=== PATIENT | female | born 1945 | race Caucasian/White ===

== ENCOUNTER → 2022-09-03 | Outpatient (CLI) | payer MEDICARE ==
[2022-09-03 19:32] LABS: BASOPHILS ABSOLUTE AUTO 0.05 K/mm3 (0.00-0.23); BASOPHILS PERCENT AUTO 1 % (0-2); EOSINOPHILS PERCENT AUTO 5 % (0-6); Hematocrit 36.6 % (33.0-51.0); Hemoglobin 11.1 g/dL (11.5-16.0); IMMATURE GRAN ABSOLUTE AUTO 0.01 K/mm3 (0.00-0.10); IMMATURE GRAN PERCENT AUTO 0 % (0-1); LYMPHOCYTES ABSOLUTE AUTO 0.74 K/mm3 (0.84-5.20); LYMPHOCYTES PERCENT AUTO 12 % (21-46); MONOCYTES ABSOLUTE AUTO 0.63 K/mm3 (0.16-1.47); MONOCYTES PERCENT AUTO 10 % (4-13); Mean Corpuscular HGB 26.4 pg (26.0-34.0); Mean Corpuscular HGB Conc 30.3 g/dL (31.5-36.5); Mean Corpuscular Volume 87 fL (80-100); Mean Platelet Volume 10.5 fL (9.1-12.4); NEUTROPHILS PERCENT AUTO 73 % (41-73); Platelet Count 221 K/mm3 (150-400); RDW Standard Deviation 51.3 fL (35.1-46.3); Red Blood Cell Count 4.21 M/mm3 (3.80-5.20); White Blood Cell Count 6.33 K/mm3 (4.00-11.30)
[2022-09-03 19:43] LABS: Alanine Aminotransfer (ALT/SGP 23 U/L (12-78); Albumin, Blood 2.9 g/dL (3.4-5.0); Albumin/Globulin Ratio 0.8 (0.8-1.8); Alk Phos 86 U/L (50-136); Anion Gap 5 mmol/L (6-16); Aspartate Aminotrans (AST/SGOT 13 U/L (12-37); Bilirubin, Total 0.4 mg/dL (0.1-1.0); Blood Urea Nitrogen 29 mg/dL (8-24); Bun/Creatinine Ratio 25.7 (12.0-20.0); CHOL/HDL RATIO 2.8; CO2, Blood 29 mmol/L (21-32); Calcium, Blood 8.6 mg/dL (8.5-10.1); Chloride, Blood 108 mmol/L (98-108); Cholesterol 125 mg/dL (50-200); Creatinine, Blood 1.13 mg/dL (0.40-1.00); Globulin, Blood 3.7 g/dL (2.2-4.0); Glomerular Filtration Rate 50 (60-); Glucose, Blood 104 mg/dL (70-99); HDL Cholesterol 44 mg/dL (>39); LDL/HDL RATIO 1.4; Low Density Lipoprotein Chol 61 mg/dL (0-110); Potassium, Blood 4.9 mmol/L (3.5-5.5); Sodium, Blood 142 mmol/L (136-145); Total Protein, Blood 6.6 g/dL (6.4-8.2); Triglycerides 100 mg/dL (30-160); Very Low Density Lipoprot Chol 20 mg/dL (6-32)
== END | disposition home or self-care (01) ==
LOC: LAB 19:07 → LAB SHORT 19:07
PROVIDERS: Family Medicine
DX: Z00.01 Encounter for general adult medical examination with abnormal findings (principal); Z11.59 Encounter for screening for other viral diseases; Z13.6 Encounter for screening for cardiovascular disorders
CPT/HCPCS: 80053; 80061; 85025; 86803

== ENCOUNTER → 2022-11-14 | Outpatient (CLI) | payer MEDICARE ==
[2022-11-14 15:24] LABS: IMMATURE RETIC FRACTION 13.6 % (2.3-16.0); RETIC HGB EQUIVALENT 29.1 pg (28.20-36.60); RETICULOCYTE ABSOLUTE 0.0591 M/mm3 (0.0200-0.1100); RETICULOCYTE COUNT PERCENT 1.42 % (0.50-2.50)
[2022-11-14 16:21] LABS: Bun/Creatinine Ratio 30.2 (12.0-20.0); Calcium, Blood 8.8 mg/dL (8.5-10.1); Creatinine, Blood 0.99 mg/dL (0.40-1.00); Percent Saturation 16.7 % (15.0-50.0); Potassium, Blood 4.5 mmol/L (3.5-5.5)
== END ==
LOC: LAB SHORT 13:52 → LAB 13:52
PROVIDERS: Family Medicine
DX: R94.4 Abnormal results of kidney function studies (principal); D50.8 Other iron deficiency anemias; D64.9 Anemia, unspecified
CPT/HCPCS: 36415; 80048; 82728; 83540; 83550; 85045

== ENCOUNTER → 2023-02-14 | Outpatient (CLI) | payer MEDICARE ==
[2023-02-14 14:37] LABS: BASOPHILS ABSOLUTE AUTO 0.05 K/mm3 (0.00-0.23); BASOPHILS PERCENT AUTO 1 % (0-2); EOSINOPHILS ABSOLUTE AUTO 0.17 K/mm3 (0.00-0.68); EOSINOPHILS PERCENT AUTO 2 % (0-6); Hematocrit 41.4 % (33.0-51.0); Hemoglobin 13.2 g/dL (11.5-16.0); IMMATURE GRAN ABSOLUTE AUTO 0.05 K/mm3 (0.00-0.10); IMMATURE GRAN PERCENT AUTO 1 % (0-1); LYMPHOCYTES ABSOLUTE AUTO 0.86 K/mm3 (0.84-5.20); LYMPHOCYTES PERCENT AUTO 12 % (21-46); MONOCYTES ABSOLUTE AUTO 0.62 K/mm3 (0.16-1.47); MONOCYTES PERCENT AUTO 9 % (4-13); Mean Corpuscular HGB 28.6 pg (26.0-34.0); Mean Corpuscular HGB Conc 31.9 g/dL (31.5-36.5); Mean Corpuscular Volume 90 fL (80-100); Mean Platelet Volume 9.9 fL (9.1-12.4); NEUTROPHILS ABSOLUTE AUTO 5.24 K/mm3 (1.96-9.15); NEUTROPHILS PERCENT AUTO 75 % (41-73); Platelet Count 215 K/mm3 (150-400); RDW Coefficient Variation 14.5 % (11.7-14.2); RDW Standard Deviation 46.7 fL (35.1-46.3); Red Blood Cell Count 4.61 M/mm3 (3.80-5.20); White Blood Cell Count 6.99 K/mm3 (4.00-11.30)
[2023-02-14 15:35] LABS: Alanine Aminotransfer (ALT/SGP 21 U/L (12-78); Albumin, Blood 3.1 g/dL (3.4-5.0); Albumin/Globulin Ratio 0.8 (0.8-1.8); Alk Phos 98 U/L (50-136); Anion Gap 4 mmol/L (6-16); Aspartate Aminotrans (AST/SGOT 15 U/L (12-37); Bilirubin, Total 0.6 mg/dL (0.1-1.0); Blood Urea Nitrogen 18 mg/dL (8-24); Bun/Creatinine Ratio 20.4 (12.0-20.0); CHOL/HDL RATIO 1.9; CO2, Blood 31 mmol/L (21-32); Calcium, Blood 8.8 mg/dL (8.5-10.1); Chloride, Blood 107 mmol/L (98-108); Cholesterol 109 mg/dL (50-200); Creatinine, Blood 0.88 mg/dL (0.40-1.00); Globulin, Blood 3.9 g/dL (2.2-4.0); Glomerular Filtration Rate 67 (60-); Glucose, Blood 117 mg/dL (70-99); HDL Cholesterol 56 mg/dL (>39); LDL/HDL RATIO 0.6; Low Density Lipoprotein Chol 33 mg/dL (0-110); Potassium, Blood 3.7 mmol/L (3.5-5.5); Sodium, Blood 142 mmol/L (136-145); Triglycerides 98 mg/dL (30-160); Very Low Density Lipoprot Chol 19 mg/dL (6-32)
== END | disposition home or self-care (01) ==
LOC: LAB SHORT 13:36 → LAB 13:36
PROVIDERS: Family Medicine
DX: Z51.81 Encounter for therapeutic drug level monitoring (principal); Z79.899 Other long term (current) drug therapy
CPT/HCPCS: 80053; 80061; 84443; 85025

== ENCOUNTER 2023-04-04 14:51 | Inpatient (IN) | payer MEDICARE ==
[~2023-04-04] VITALS: Ht 142.2 cm; Wt 93.3 kg
[2023-04-04 15:15] LABS: BASOPHILS ABSOLUTE AUTO 0.04 K/mm3 (0.00-0.23); BASOPHILS PERCENT AUTO 0 % (0-2); EOSINOPHILS ABSOLUTE AUTO 0.01 K/mm3 (0.00-0.68); EOSINOPHILS PERCENT AUTO 0 % (0-6); Hematocrit 42.2 % (33.0-51.0); Hemoglobin 13.8 g/dL (11.5-16.0); IMMATURE GRAN ABSOLUTE AUTO 0.14 K/mm3 (0.00-0.10); IMMATURE GRAN PERCENT AUTO 1 % (0-1); LYMPHOCYTES ABSOLUTE AUTO 0.33 K/mm3 (0.84-5.20); LYMPHOCYTES PERCENT AUTO 2 % (21-46); MONOCYTES ABSOLUTE AUTO 1.27 K/mm3 (0.16-1.47); MONOCYTES PERCENT AUTO 7 % (4-13); Mean Corpuscular HGB 29.3 pg (26.0-34.0); Mean Corpuscular HGB Conc 32.7 g/dL (31.5-36.5); Mean Corpuscular Volume 90 fL (80-100); Mean Platelet Volume 9.6 fL (9.1-12.4); NEUTROPHILS ABSOLUTE AUTO 17.51 K/mm3 (1.96-9.15); NEUTROPHILS PERCENT AUTO 91 % (41-73); Platelet Count 184 K/mm3 (150-400); RDW Coefficient Variation 13.2 % (11.7-14.2); RDW Standard Deviation 43.1 fL (35.1-46.3); Red Blood Cell Count 4.71 M/mm3 (3.80-5.20)
[2023-04-04 15:22] LABS: Source, Urine Straight Cath
[2023-04-04 15:26] LABS: Blood, Urine 1+ (Neg); Color, Urine Amber (P-Yellow); Glucose Qualitative, Urine 3+ (Neg); Ketones, Urine 1+ (Neg); Leukocyte Esterase, Urine 1+ (Neg); Nitrite, Urine Neg (Neg); Protein, Urine 3+ (Neg); Urobilinogen, Urine 2+ (Normal)
[2023-04-04 15:32] LABS: Appearance, Urine Hazy (Clear); Bilirubin, Urine 1+ (Neg)
[2023-04-04 15:35] LABS: Mucus Light (0-Heavy); Red Blood Cells, Urine 0-2 /hpf (0-2)
[2023-04-04 15:36] LABS: Bacteria Mod /hpf; Squamous Epithelial Cells Not Seen /hpf (Few)
[2023-04-04 15:36] LABS: Albumin, Blood 2.8 g/dL (3.4-5.0); Albumin/Globulin Ratio 0.7 (0.8-1.8); Bilirubin, Total 2.4 mg/dL (0.1-1.0); Bun/Creatinine Ratio 22.9 (12.0-20.0); Calcium, Blood 8.6 mg/dL (8.5-10.1); Creatinine, Blood 0.83 mg/dL (0.40-1.00); Globulin, Blood 3.9 g/dL (2.2-4.0); Potassium, Blood 3.7 mmol/L (3.5-5.5); Total Protein, Blood 6.7 g/dL (6.4-8.2)
[2023-04-04 20:49] LABS: Influenza A, PCR NEGATIVE (NEGATIVE); Influenza B, PCR NEGATIVE (NEGATIVE); Resp Syncytial Virus, PCR NEGATIVE (NEGATIVE); SARS-Cov-2 (COVID-19) PCR, MMC NEGATIVE (NEGATIVE)
[2023-04-04] MEDS ORDERED: CARV25 PO (21:42)
[2023-04-04] MEDS ORDERED: Vitamin D1000 UNI1 PO (21:42)
[2023-04-04] MEDS ORDERED: LOSA25 PO (21:43)
[2023-04-04] MEDS ORDERED: FAMO10 PO (21:44)
[2023-04-04] MEDS ORDERED: FURO20 PO (21:44)
[2023-04-04] MEDS ORDERED: JARDIANCE10 MG PO (21:45)
[2023-04-04] MEDS ORDERED: PANT40 PO (21:45)
[2023-04-04] MEDS ORDERED: TRAM50 PO (21:46)
[2023-04-05 01:20] VITALS: BP 116/59
--- NOTE | 2023-04-05 05:13 | NUR ---
SHIFT SUMMARY 36 YR F ADMITTED ON 04/04/23 FOR SEPSIS PNEUMONIA. FULL CODE. NO ACUTE CHANGES THIS SHIFT. PT IS A&O X 4 AND INDEPENDANT IN THE ROOM. SHE CALLS APPROPRIATELY FOR HER NEEDS.
--- NOTE | 2023-04-05 05:35 | NUR ---
PLEASE DISREGARD PREVIOUS NOTE. IT WAS WRITTEN IN ERROR FOR THE WRONG PATIENT.
--- NOTE | 2023-04-05 05:36 | NUR ---
SHIFT SUMMARY 77 YR F ADMITTED ON 04/04/23 FOR CHOLEDOCHOLELITHIASIS. FULL CODE. PT APPEARS TO BE A&O WITH SOME INTERMITTENT CONFUSION. SHE IS A POOR MU[employer]ER BLASTING. SHE PULLED OUT HER IV AND A NEW ONE WAS PLACED. PT HAS HAD NO C/O PAIN OR DISCOMFORT THIS SHIFT. SHE WAS A HEAVY 2 PERSON ASSIST TO THE BEDSIDE COMMODE.
[2023-04-05 07:31] LABS: Hematocrit 38.5 % (33.0-51.0); Hemoglobin 12.2 g/dL (11.5-16.0); Mean Corpuscular HGB 29.3 pg (26.0-34.0); Mean Corpuscular HGB Conc 31.7 g/dL (31.5-36.5); Mean Corpuscular Volume 93 fL (80-100); Mean Platelet Volume 10.1 fL (9.1-12.4); Platelet Count 169 K/mm3 (150-400); RDW Coefficient Variation 13.9 % (11.7-14.2); Red Blood Cell Count 4.16 M/mm3 (3.80-5.20); White Blood Cell Count 31.28 K/mm3 (4.00-11.30)
[2023-04-05 07:50] VITALS: BP 116/52
[2023-04-05 07:55] LABS: Albumin, Blood 2.4 g/dL (3.4-5.0); Albumin/Globulin Ratio 0.6 (0.8-1.8); Bilirubin, Total 1.4 mg/dL (0.1-1.0); Bun/Creatinine Ratio 16.5 (12.0-20.0); Calcium, Blood 7.8 mg/dL (8.5-10.1); Creatinine, Blood 1.7 mg/dL (0.40-1.00); Globulin, Blood 3.8 g/dL (2.2-4.0); Potassium, Blood 4.1 mmol/L (3.5-5.5); Total Protein, Blood 6.2 g/dL (6.4-8.2)
[2023-04-05 08:35] LABS: BAND PERCENT MAN 31 % (0-8); BASOPHILS PERCENT MAN 0 % (0-2); EOSINOPHILS PERCENT MAN 0 % (0-6); LYMPHOCYTES ABSOLUTE MAN 0.93 K/mm3 (0.84-5.20); LYMPHOCYTES PERCENT MAN 3 % (21-46); MONOCYTES ABSOLUTE MAN 0.93 K/mm3 (0.16-1.47); MONOCYTES PERCENT MAN 3 % (4-13); SEG NEUTROPHILS PERCENT MAN 63 % (41-73); TOTAL CELLS COUNTED 100
[2023-04-05 15:23] VITALS: BP 174/67
--- NOTE | 2023-04-05 18:45 | NUR ---
PT IS A/OX4, PLEASANT AND COOPERATIVE. THE PT WAS MEDICATED FOR PAIN AND NAUSEA T/O THE DAY. THE PT WAS MADE NPO DUE TO CONTINUALLY SPITTING UP/VOMITING GREEN BILE. PT WAS MEDICATED FOR ACID REFLUX X1 SO FAR THIS SHIFT WITH MA LOX WHICH THE PT REPORTED HELPED. THE PTS FAMILY WAS IN AND SPOKE WITH THE DR. PT WAS UP TO THE BSC TODAY WITH ASSISTANCE. PT IS HAVING LOOSE WATERY STOOLS TODAY. CALL LIGHT IN REACH. BED IN THE LOW POSITION
[2023-04-05 19:28] VITALS: BP 107/56
[2023-04-06 05:00] VITALS: BP 143/62
--- NOTE | 2023-04-06 05:51 | NUR ---
SHIFT SUMMARY 77 YR F ADMITTED ON 04/05/23 FOR CHOLEDOCHOLELIATHISIS. FULL CODE. NO ACUTE CHANGES THIS SHIFT. PT CALLS APPROPRIATELY FOR ASSISTANCE AND HAS BEEN UP TO THE BEDSIDE COMODE SEVERAL TIMES THIS SHIFT. NO C/O N/V OR PAIN, DISCOMFORT. PT STATES THAT SHE WOULD LIKE TO GET OUT OF BED AND INTO THE CHAIR LATER THIS MORNING. VITAL SIGNS REVIEWED. SHE IS PLEASANT AND COOPERATIVE WITH CARE. BED IN LOW POSITION AND CALL LIGHT IN REACH.
[2023-04-06 06:12] LABS: BASOPHILS ABSOLUTE AUTO 0.03 K/mm3 (0.00-0.23); BASOPHILS PERCENT AUTO 0 % (0-2); EOSINOPHILS ABSOLUTE AUTO 0.11 K/mm3 (0.00-0.68); EOSINOPHILS PERCENT AUTO 1 % (0-6); Hemoglobin 12.2 g/dL (11.5-16.0); IMMATURE GRAN ABSOLUTE AUTO 0.22 K/mm3 (0.00-0.10); IMMATURE GRAN PERCENT AUTO 1 % (0-1); LYMPHOCYTES ABSOLUTE AUTO 0.93 K/mm3 (0.84-5.20); LYMPHOCYTES PERCENT AUTO 6 % (21-46); MONOCYTES ABSOLUTE AUTO 1.04 K/mm3 (0.16-1.47); MONOCYTES PERCENT AUTO 6 % (4-13); Mean Corpuscular HGB 29.1 pg (26.0-34.0); Mean Corpuscular HGB Conc 31.3 g/dL (31.5-36.5); Mean Corpuscular Volume 93 fL (80-100); Mean Platelet Volume 10.8 fL (9.1-12.4); NEUTROPHILS ABSOLUTE AUTO 13.85 K/mm3 (1.96-9.15); NEUTROPHILS PERCENT AUTO 86 % (41-73); Platelet Count 138 K/mm3 (150-400); RDW Coefficient Variation 13.8 % (11.7-14.2); RDW Standard Deviation 46.8 fL (35.1-46.3); Red Blood Cell Count 4.19 M/mm3 (3.80-5.20); White Blood Cell Count 16.18 K/mm3 (4.00-11.30)
[2023-04-06 06:39] LABS: Albumin, Blood 2.2 g/dL (3.4-5.0); Albumin/Globulin Ratio 0.6 (0.8-1.8); Bilirubin, Total 0.5 mg/dL (0.1-1.0); Bun/Creatinine Ratio 24.5 (12.0-20.0); Calcium, Blood 7.4 mg/dL (8.5-10.1); Creatinine, Blood 1.43 mg/dL (0.40-1.00); Globulin, Blood 3.7 g/dL (2.2-4.0); Potassium, Blood 3.6 mmol/L (3.5-5.5); Total Protein, Blood 5.9 g/dL (6.4-8.2)
[2023-04-06 07:27] VITALS: BP 143/88
[2023-04-06 15:07] VITALS: BP 155/97
[2023-04-06 20:23] VITALS: BP 144/75
--- NOTE | 2023-04-07 03:10 | NUR ---
SOFTWARE RECRUITER SUMMARY VSS. ASSISTED TO BED AT HS (2 PERSON), FROM CHAIR. AND TO COMMODE FOR BM LATER. THEN ASSISTED UP IN BED A FEW TIMES FOR COMFORT. HOB ELEVATED FOR BREATHING COMFORT. IVF OF NS INFUSING AND INTERMITTENT ANTIBIOTICS - AND PAIN MEDS ADMINISTERED WHEN VOICED PAIN OF ABD AREA - SEE MAR FOR DETAILS. AWAITING [place] TRANSFER FOR ERCP IN A FEW DAYS. COOPERATIVE WITH CARE. OTHERWISE HAS BEEN RESTING QUIETLY WITH CALL LIGHT IN REACH. RAILS UP X 2 FOR SAFETY. WILL CONTINUE TO MONITOR
[2023-04-07 04:26] VITALS: BP 162/109
[2023-04-07 06:06] LABS: BASOPHILS ABSOLUTE AUTO 0.09 K/mm3 (0.00-0.23); BASOPHILS PERCENT AUTO 1 % (0-2); EOSINOPHILS ABSOLUTE AUTO 0.35 K/mm3 (0.00-0.68); EOSINOPHILS PERCENT AUTO 3 % (0-6); Hematocrit 40.3 % (33.0-51.0); Hemoglobin 12.4 g/dL (11.5-16.0); IMMATURE GRAN PERCENT AUTO 1 % (0-1); LYMPHOCYTES ABSOLUTE AUTO 0.79 K/mm3 (0.84-5.20); LYMPHOCYTES PERCENT AUTO 6 % (21-46); MONOCYTES ABSOLUTE AUTO 0.84 K/mm3 (0.16-1.47); MONOCYTES PERCENT AUTO 7 % (4-13); Mean Corpuscular HGB 29.1 pg (26.0-34.0); Mean Corpuscular HGB Conc 30.8 g/dL (31.5-36.5); Mean Corpuscular Volume 95 fL (80-100); Mean Platelet Volume 10.4 fL (9.1-12.4); NEUTROPHILS ABSOLUTE AUTO 10.16 K/mm3 (1.96-9.15); NEUTROPHILS PERCENT AUTO 83 % (41-73); Platelet Count 155 K/mm3 (150-400); RDW Coefficient Variation 13.5 % (11.7-14.2); RDW Standard Deviation 46.7 fL (35.1-46.3); Red Blood Cell Count 4.26 M/mm3 (3.80-5.20); White Blood Cell Count 12.33 K/mm3 (4.00-11.30)
[2023-04-07 06:28] LABS: Albumin, Blood 2.5 g/dL (3.4-5.0); Albumin/Globulin Ratio 0.6 (0.8-1.8); Bilirubin, Total 0.4 mg/dL (0.1-1.0); Bun/Creatinine Ratio 23.2 (12.0-20.0); Calcium, Blood 8.3 mg/dL (8.5-10.1); Creatinine, Blood 0.99 mg/dL (0.40-1.00); Globulin, Blood 3.9 g/dL (2.2-4.0); Potassium, Blood 4.2 mmol/L (3.5-5.5); Total Protein, Blood 6.4 g/dL (6.4-8.2)
[2023-04-07 07:29] VITALS: BP 176/98
[2023-04-07 14:57] VITALS: BP 163/87
--- NOTE | 2023-04-07 16:49 | NUR ---
SHIFT SUMMARY A&OX3-4, OCCASIONAL CONFUSION NOTED, COOPERATIVE WITH CARE. COMPLAINED OF HEADACHE AND SORE BOTTOM THIS MORNING. MEDICATED WITH TYLENOL. CREAM APPLIED TO BLANCHABLE REDNESS ON COCCYX. 4 DARK, RUNNY BM'S RECORDED T/O SHIFT THIS FAR. PATIENT HAS BEEN ABLE TO TRANSFER FROM BED TO BSC WITH 1PA. NO ACUTE CHANGES THIS SHIFT. PATIENT CURRENTLY LAYING IN BED WATCHING TV. BED IN LOWEST POSITION. CALL LIGHT WITHIN REACH.
[2023-04-07 19:49] VITALS: BP 167/113
[2023-04-07] MEDS ORDERED: CATAPRES-TTS 11 EAC1 PO (23:19)
[2023-04-08] VITALS (8 sets, daily range): BP systolic 142–221; BP diastolic 66–130
--- NOTE | 2023-04-08 03:55 | NUR ---
REEL STRIPPER SUMMARY BP ELEVATED, OTHERWISE VSS. AWAKE INTERMITTENTLY AND ASSISTED TO BEDSIDE COMMODE. IV REPLACED AND ANTIBIOTICS INFUSING ORDERED, SEE MAR FOR DETAILS. DISPLAYING MORE ABILITY TO HELP STAFF SHE IS REPOSITIONED AND OUT OF BED TO THE COMMODE. RESTING QUIETLY AT THIS TIME. HOB ELEVATED. RESPS EVEN. CALL LIGHT IN REACH. RAILS UP X 2 FOR SAFETY. WILL CONTINUE TO MONITOR
[2023-04-08 05:52] LABS: BASOPHILS ABSOLUTE AUTO 0.06 K/mm3 (0.00-0.23); BASOPHILS PERCENT AUTO 1 % (0-2); EOSINOPHILS PERCENT AUTO 5 % (0-6); Hematocrit 38.4 % (33.0-51.0); IMMATURE GRAN ABSOLUTE AUTO 0.05 K/mm3 (0.00-0.10); IMMATURE GRAN PERCENT AUTO 1 % (0-1); LYMPHOCYTES ABSOLUTE AUTO 0.72 K/mm3 (0.84-5.20); LYMPHOCYTES PERCENT AUTO 12 % (21-46); MONOCYTES ABSOLUTE AUTO 0.52 K/mm3 (0.16-1.47); MONOCYTES PERCENT AUTO 9 % (4-13); Mean Corpuscular HGB 28.9 pg (26.0-34.0); Mean Corpuscular HGB Conc 31.3 g/dL (31.5-36.5); Mean Corpuscular Volume 93 fL (80-100); Mean Platelet Volume 10.2 fL (9.1-12.4); NEUTROPHILS ABSOLUTE AUTO 4.36 K/mm3 (1.96-9.15); NEUTROPHILS PERCENT AUTO 73 % (41-73); Platelet Count 159 K/mm3 (150-400); RDW Coefficient Variation 13.2 % (11.7-14.2); Red Blood Cell Count 4.15 M/mm3 (3.80-5.20); White Blood Cell Count 6.01 K/mm3 (4.00-11.30)
[2023-04-08 06:14] LABS: Albumin, Blood 2.4 g/dL (3.4-5.0); Albumin/Globulin Ratio 0.6 (0.8-1.8); Bilirubin, Total 0.4 mg/dL (0.1-1.0); Bun/Creatinine Ratio 13.6 (12.0-20.0); Calcium, Blood 8.5 mg/dL (8.5-10.1); Creatinine, Blood 0.89 mg/dL (0.40-1.00); Globulin, Blood 3.7 g/dL (2.2-4.0); Total Protein, Blood 6.1 g/dL (6.4-8.2)
--- NOTE | 2023-04-08 06:36 | NUR ---
BP ELEVATED. MD NOTIFIED AND HYDRALAZINE 10 MG IV ORDERED AND GIVEN. WILL F/U ON AM SHIFT WITH BP. PT ASYMPTOMATIC.
--- NOTE | 2023-04-08 10:57 | NUR ---
PHYSICIAN CONTACT/HTN PT BP RECHECKED AFTER AM MEDS. BP 212/87. DR. COOPER NOTIFIED. ORDERED TO GIVE EVENING DOSE OF CATAPRESS NOW.
--- NOTE | 2023-04-08 17:28 | NUR ---
REPORT CALLED TO NURSE DELGADO REPORT CALLED TO NURSE DELGADO AT [facility]. NO FURTHER QUESTIONS AT THIS TIME.
--- NOTE | 2023-04-08 18:27 | NUR ---
DISCHARGE PT BRENNAN DISCHARGED TO [facility]. REPORT ALREADY CALLED TO NURSE DELGADO. PT TRANSPORTED VIA AMBULANCE. IV INTACT AND PATENT. LIQUID STOOLS T/O DAY. NO NEED FOR PAIN MANAGEMENT TODAY. BARRIER CREAM APPLIED TO BOTTOM PRIOR TO DC AFTER TOILETING. NO OTHER ACUTE CHANGES IN ASSESSMETN AT THIS TIME. VS REVIEWED AND BP BETTER MANAGED AFTER ADDING HOME CATAPRESS DOSE TODAY. GRANDDAUGHTER GÉNESIS NOTIFIED OF DEPARTURE AND NEED FOR [facility] AND [facility] TO BE PICKED UP TOMORROW.
== END 2023-04-08 18:26 | disposition short-term general hospital (02) | DRG 872 ==
LOC: ER 14:51 → MEDS 22:49 → ERHOLD 22:49 → MEDS 04-05 01:10
PROVIDERS: Emergency Medicine; Family Medicine; ADMIT Internal Medicine
DX: A41.59 Other Gram-negative sepsis (principal); K80.31 Calculus of bile duct with cholangitis, unspecified, with obstruction; N17.9 Acute kidney failure, unspecified; B96.89 Other specified bacterial agents as the cause of diseases classified elsewhere; E11.9 Type 2 diabetes mellitus without complications; K21.9 Gastro-esophageal reflux disease without esophagitis; E86.0 Dehydration; I10 Essential (primary) hypertension; Z90.49 Acquired absence of other specified parts of digestive tract; Z11.52 Encounter for screening for COVID-19
CPT/HCPCS: 0241U; 36415; 51701; 71045; 74177; 74181; 80053; 81001; 82947; 83605; 83880; 85025; 87040; 87077; 87086; 87186; 93005; 93010; 96361-59; 96365-59; 96367; 96375-59; 96376; 96376-59; 99285-25; A9270; C8929; G0378; J0360; J0696; J1170; J1650; J2405; J2543; J3010; J7030; Q2036; Q9957; Q9967

== ENCOUNTER → 2023-07-29 | Outpatient (CLI) | payer MEDICARE ==
[~2023-07-29] MED LIST: CARV25 PO; CATAPRES-TTS 11 EAC1 PO; FAMO10 PO; FURO20 PO; JARDIANCE10 MG PO; LOSA25 PO; PANT40 PO; TRAM50 PO; Vitamin D1000 UNI1 PO
[2023-07-29 14:02] LABS: Creatinine, Urine Random 16.1 mg/dL (27.00-270.00)
[2023-07-29 14:05] LABS: Microalb/Creat Ratio UR, Rand 66.46 mg/g (0.000-30.000); Microalbumin, Random Urine 10.7 mg/L (0.000-20.000)
== END | disposition home or self-care (01) ==
LOC: LAB SHORT 10:15 → LAB 10:15
PROVIDERS: Student in an Organized Health Care Education/Training Program
DX: E11.9 Type 2 diabetes mellitus without complications (principal)
CPT/HCPCS: 82043; 82570

== ENCOUNTER → 2023-12-19 | Outpatient (CLI) | payer MEDICARE ==
[2023-12-19 15:11] LABS: BASOPHILS ABSOLUTE AUTO 0.06 K/mm3 (0.00-0.23); BASOPHILS PERCENT AUTO 1 % (0-2); EOSINOPHILS ABSOLUTE AUTO 0.25 K/mm3 (0.00-0.68); EOSINOPHILS PERCENT AUTO 3 % (0-6); Hematocrit 44.3 % (33.0-51.0); Hemoglobin 14.6 g/dL (11.5-16.0); IMMATURE GRAN ABSOLUTE AUTO 0.03 K/mm3 (0.00-0.10); IMMATURE GRAN PERCENT AUTO 0 % (0-1); LYMPHOCYTES ABSOLUTE AUTO 0.92 K/mm3 (0.84-5.20); LYMPHOCYTES PERCENT AUTO 12 % (21-46); MONOCYTES ABSOLUTE AUTO 0.59 K/mm3 (0.16-1.47); MONOCYTES PERCENT AUTO 8 % (4-13); Mean Corpuscular HGB 29.6 pg (26.0-34.0); Mean Corpuscular Volume 90 fL (80-100); Mean Platelet Volume 9.9 fL (9.1-12.4); NEUTROPHILS ABSOLUTE AUTO 5.61 K/mm3 (1.96-9.15); NEUTROPHILS PERCENT AUTO 75 % (41-73); Platelet Count 230 K/mm3 (150-400); RDW Coefficient Variation 12.7 % (11.7-14.2); RDW Standard Deviation 41.7 fL (35.1-46.3); Red Blood Cell Count 4.94 M/mm3 (3.80-5.20); White Blood Cell Count 7.46 K/mm3 (4.00-11.30)
[2023-12-19 15:20] LABS: CHOL/HDL RATIO 3.6; Cholesterol 176 mg/dL (50-200); HDL Cholesterol 49 mg/dL (>39); LDL/HDL RATIO 2.2; Low Density Lipoprotein Chol 107 mg/dL (0-110); Triglycerides 100 mg/dL (30-160); Very Low Density Lipoprot Chol 20 mg/dL (6-32)
[2023-12-19 15:28] LABS: Albumin, Blood 2.9 g/dL (3.4-5.0); Albumin/Globulin Ratio 0.8 (0.8-1.8); Bilirubin, Total 0.5 mg/dL (0.1-1.0); Bun/Creatinine Ratio 22.5 (12.0-20.0); Calcium, Blood 9.2 mg/dL (8.5-10.1); Creatinine, Blood 0.76 mg/dL (0.40-1.00); Globulin, Blood 3.8 g/dL (2.2-4.0); Percent Saturation 62.6 % (15.0-50.0); Potassium, Blood 4.3 mmol/L (3.5-5.5); Total Protein, Blood 6.7 g/dL (6.4-8.2)
== END ==
LOC: LAB 14:20 → LAB SHORT 14:20
PROVIDERS: Family Medicine; Student in an Organized Health Care Education/Training Program
DX: I12.9 Hypertensive chronic kidney disease with stage 1 through stage 4 chronic kidney disease, or unspecified chronic kidney disease (principal); N18.2 Chronic kidney disease, stage 2 (mild); E61.1 Iron deficiency
CPT/HCPCS: 80053; 80061; 82728; 83540; 83550; 85025

== ENCOUNTER 2024-01-22 18:02 | Emergency (ER) | payer OTHER, MEDICARE ==
[~2024-01-22] VITALS: Ht 142.2 cm; Wt 88.5 kg
[2024-01-22 18:23] VITALS: BP 147/95
[2024-01-22] MEDS ORDERED: Diphth,Pertuss(Acell),Tet Vac 0.5 ML VIAL IM ONE (18:40)
== END 2024-01-22 19:46 | disposition home or self-care (01) ==
LOC: ER 18:02
DX: S81.811A Laceration without foreign body, right lower leg, initial encounter (principal); E11.9 Type 2 diabetes mellitus without complications; Z79.899 Other long term (current) drug therapy; W54.1XXA Struck by dog, initial encounter
CPT/HCPCS: 12001; 90471; 90715; 99282-25

== ENCOUNTER → 2024-03-01 | Outpatient (CLI) | payer MEDICARE | END | disposition home or self-care (01) | LOC: LAB SHORT 16:33 → LAB 16:33 | DX: S81.801D Unspecified open wound, right lower leg, subsequent encounter (principal) | CPT/HCPCS: 87070; 87077; 87147; 87186; 87205 ==